=== PATIENT | female | born 1990 | race Caucasian/White ===

== ENCOUNTER 2018-08-25 03:56 | Emergency (ER) | payer BC ==
[~2018-08-25] VITALS: Ht 172.7 cm; Wt 122.5 kg
[2018-08-25] MEDS ORDERED: ACETAMINOPHEN ES 500 MG TABLET ONE (04:47)
--- NOTE | 2018-08-25 04:56 | NUR ---
PT BIBS. C/O "HAVING FEVER AND A COUGH SINCE CRISPIN, SORE THROAT AND HEADACHE". -SOB -N/V +FEVER -ACUTE DISTRESS.
[2018-08-25] MEDS ORDERED: ACETAMINOPHEN 325 MG TABLET PO ONE (05:00)
[2018-08-25] MEDS ORDERED: ALBUTEROL FS 2.5 MG/0.5 ML VIAL.NEB NEB ONE (05:00)
[2018-08-25] MEDS ORDERED: AZITHROMYCIN 250 MG TABLET PO ONE (05:30)
[2018-08-25] MEDS ORDERED: AZITHROMYCIN 250 MG TABLET ONE (05:32)
[2018-08-25 05:44] VITALS: BP 136/88
== END 2018-08-25 05:45 | disposition home or self-care (01) ==
LOC: ER 04:00
DX: J18.9 Pneumonia, unspecified organism (principal); J45.909 Unspecified asthma, uncomplicated
CPT/HCPCS: 71045-TC